=== PATIENT | female | born 1950 | race Caucasian/White ===

== ENCOUNTER → 2017-11-22 | Outpatient (CLI) | payer OTHER, BC, MEDICAID | LOC: FIMAGING 10:43 | DX: N18.1 Chronic kidney disease, stage 1 (principal) ==

== ENCOUNTER → 2017-12-16 | Outpatient (CLI) | payer OTHER, BC, MEDICAID | LOC: FIMAGING 13:17 | DX: Z13.820 Encounter for screening for osteoporosis (principal); M85.89 Other specified disorders of bone density and structure, multiple sites ==

== ENCOUNTER → 2018-02-15 | Outpatient (CLI) | payer OTHER, BC, MEDICAID ==
[~2018-02-15] MED LIST: IOPAMIDOL (ISOVUE-300) 100 ML BTL ONE
== END ==
LOC: FIMAGING 10:42
PROVIDERS: ATTEND Family Medicine
DX: N20.0 Calculus of kidney (principal); I70.0 Atherosclerosis of aorta; K57.30 Diverticulosis of large intestine without perforation or abscess without bleeding; M51.36 Other intervertebral disc degeneration, lumbar region; Z90.49 Acquired absence of other specified parts of digestive tract
CPT/HCPCS: 74177; Q9967

== ENCOUNTER → 2018-06-07 | Outpatient (CLI) | payer OTHER, MEDICAID ==
--- NOTE | 2018-06-07 16:06 | ECHO ---
[email or web address] [address] [address] Main: [phone] Fax: [email or web address] Echocardiogram Name: PIEDAD DELGADO MR#: [id number] Study Date: 06/07/2018 Study Time: 02:02 PM Date of : 1950 Age: 68 year(s) Height: 160 cm (63 in.) Weight: 85.73 kg (189 lb.) BSA: 1.89 m2 Gender: Female Examination: Echo Indication: Coronary artery disease, Shortness of breath Image Quality: Contrast: Requested by: On staff Doctor not BP: 122 mmHg/77 mmHg Heart Rate: Rhythm: Normal sinus rhythm Indication: Coronary artery disease, Shortness of breath Procedure Staff Clay Temperer: Corbin Hope RDCS Reading Physician: Kael Burt MD Requesting Provider: Conclusions: Normal size left ventricle. No LV hypertrophy. Normal global systolic LV function. EF is 72 %. Diastolic dysfunction is present. . Normal size right ventricle. Normal RV function. The left atrium is normal in size. The right atrium is normal in size. The mitral valve is normal in appearance and function. Trivial mitral valve regurgitation. The aortic valve is normal in appearance and function. The tricuspid valve appears normal. Mild tricuspid regurgitation is present. The pulmonary artery pressure is mild to moderately increased. The pulmonic valve is normal in appearance and function. The aorta is normal. No pericardial effusion. The most likely cause of shortness of breath in this patient is elevated resting pulmonary pressure. Measurements: Chambers Valvular Assessment AV/MV Valvular Assessment TV/PV Normal Normal Normal Name Value Range Name Value Range Name Value Range Ao Cinda (MM): 2.6 cm (2.2 cm-3.7 MV E Vmax: 0.85 m/s ( - ) TR Vmax: 3.27 mm/s ( - ) cm) MV A Vmax: 1.00 m/s ( - ) TR PGmax: 43 mmHg ( - ) IVSd (2D): 0.8 cm (0.6 cm-1.1 MV E/A: 0.85 ( - ) syst. PAP: 48 mmHg ( - ) cm) PV Vmax: 0.75 m/s (0.6 m/s-0.9 LVDd (2D): 4.6 cm (3.9 cm-5.3 m/s) cm) Patient: PIEDAD DELGADO Study Date: 06/07/2018 Page 1 of 2 02:02 PM LVDs (2D): 2.7 cm (2.1 cm-4 PV PGmax: 2 mmHg ( - ) cm) LVPWd (2D): 0.9 cm ( - ) LVEF (2D): 72 (>=54 %) Continued Measurements: Chambers Valvular Assessment AV/MV Valvular Assessment TV/PV Name Value Name Value Name Value LADs Lon.7 cm MV E' Septal: 0.07 m/s CVP (est.): 5 mmHg LA Area: 17.2 cm2 MV E/E' Septal: 12.30 LA Volume: 46 ml MV E/E' Lateral: 8.00 LA Volume Index: 24.3 ml/m2 Findings: Left Ventricle: Normal size left ventricle. No LV hypertrophy. Normal global systolic LV function. EF is 72 %. Diastolic dysfunction is present. . Right Ventricle: Normal size right ventricle. Normal RV function. Left Atrium: The left atrium is normal in size. Right Atrium: The right atrium is normal in size. Mitral Valve: The mitral valve is normal in appearance and function. Trivial mitral valve regurgitation. Aortic Valve: The aortic valve is normal in appearance and function. Tricuspid Valve: The tricuspid valve appears normal. Mild tricuspid regurgitation is present. The pulmonary artery pressure is mild to moderately increased. Pulmonic Valve: The pulmonic valve is normal in appearance and function. Aorta: The aorta is normal. Pericardium: No pericardial effusion. (No Signature Object) Patient: PIEDAD DELGADO Study Date: 06/07/2018 Page 2 of 2 02:02 PM [id number]
== END ==
LOC: FCP 13:37
PROVIDERS: ATTEND Internal Medicine Geriatric Medicine
DX: R06.02 Shortness of breath (principal); I25.10 Atherosclerotic heart disease of native coronary artery without angina pectoris

== ENCOUNTER → 2018-07-16 | Outpatient (CLI) | payer OTHER, MEDICAID | LOC: FIMAGING 11:31 | PROVIDERS: ATTEND Nurse Practitioner Family | DX: M25.579 Pain in unspecified ankle and joints of unspecified foot (principal) ==

== ENCOUNTER → 2018-07-19 | Outpatient (CLI) | payer OTHER, MEDICAID | LOC: FIMAGING 15:43 | PROVIDERS: ATTEND Internal Medicine Geriatric Medicine | DX: M71.22 Synovial cyst of popliteal space [Baker], left knee (principal); M71.21 Synovial cyst of popliteal space [Baker], right knee ==

== ENCOUNTER 2018-07-21 08:19 | Emergency (ER) | payer MEDICAID, OTHER ==
--- NOTE | 2018-07-21 09:08 | EDPHY ---
H & P Time Seen by Provider: 07/21/18 09:01 HPI/ROS: Chief complaint. Shortness of breath, right leg pain HPI. 68-year-old female presents emergency department with complaints of shortness of breath and painful right great toe. Shortness of breath is worse at night and better with sitting up. She really does not noticed the shortness of breath during the day. She does have occasional chest pain but has not had chest pain for the last several days. She has a chronic cough that is not different. She has no fever. Patient was seen in our emergency department May 26 for leg swelling and shortness of breath. She had a CT a which showed coronary artery disease but unlikely to have pulmonary embolus. She had an echocardiogram on June 07 which showed increased pulmonary artery pressure and the conclusion was most likely cause of shortness of breath is increased resting pulmonary pressure. Patient had an ultrasound of both legs July 19 which showed popliteal cyst but no evidence for DVT. The right great toe is red and painful at the base of the toe. She denies trauma. No abdominal pain vomiting or diarrhea ROS 10 systems were reviewed and negative with the exception of the elements mentioned in the history of present illness Past Medical/Surgical History: Past medical history is significant for coronary artery disease, kidney disease , hypothyroid Social History: Life partner, nonsmoker, no alcohol Smoking Status: Never smoked Physical Exam: General Appearance: Alert well-developed female mild distress vital signs are stable Eyes: Pupils equal and round no pallor or injection. ENT, Mouth: Mucous membranes are moist. Respiratory: There are no retractions, lungs are clear to auscultation. Cardiovascular: Regular rate and rhythm. Gastrointestinal: Abdomen is soft and nontender, no masses, bowel sounds normal. Neurological: Awake and alert, sensory and motor exams grossly normal. Skin: Warm and dry, no rashes. Musculoskeletal: Neck is supple nontender. Extremities symmetrical, full range of motion. Right great toe is erythematous and tender with mild swelling. Tender especially at the MTP joint but is erythematous to the tip of the toe. No lymphangitis Psychiatric: Patient is oriented X 3, there is no agitation. Constitutional: Initial Vital Signs Temperature (C) 36.8 C 07/21/18 08:24 Heart Rate 67 07/21/18 08:24 Respiratory Rate 17 07/21/18 08:24 Blood Pressure 97/65 L 07/21/18 08:24 O2 Sat (%) 94 07/21/18 08:24 O2 Delivery Mode Room Air Allergies/Adverse Reactions: erythromycin base Allergy (Verified 07/21/18 08:22) Home Medications: Medication Instructions Recorded Ambien 05/26/18 Amlodipine Besylate 05/26/18 Atenolol 05/26/18 Celecoxib 05/26/18 Levoxyl 05/26/18 Liothyronine Sodium 05/26/18 Albuterol Hfa Anes Only [Proair 2 puffs IH QID PRN #1 mdi 07/21/18 Hfa Icu (*)] Cephalexin [Keflex (*)] 500 mg PO TID #15 cap 07/21/18 Famotidine 07/21/18 Gabapentin 07/21/18 ZOLPIDEM TARTRATE 07/21/18 predniSONE 40 mg PO DAILY #8 tablet 07/21/18 traZODone 07/21/18 Medical Decision Making - Diagnostics EKG Interpretation: EKG interpreted by me shows normal sinus rhythm normal interval and axis. QRS is normal other than low voltage. There is no obvious ST elevation or depression. There is no arrhythmia. The rate is 64 Imaging Results: Imaging Impressions Chest X-Ray 07/21/18 09:19 Impression: 1. Mild bronchitis/airways disease. 2. No definite pneumonia. Chest x-ray interpreted by me shows mild bronchitis. No evidence of pneumonia. Procedures: IV normal saline, monitor ED Course/Re-evaluation: Re-evaluation 10:00 a.m.. Patient is stable. Patient and I discussed EKG, imaging, laboratory evaluation. We discussed treatment plan including criteria for return importance of follow-up further evaluation. She expresses understanding and agreement Differential Diagnosis: I considered acute coronary syndrome, congestive heart failure, pneumonia. Patient has recently had bilateral leg ultrasound that was negative for DVT. CT angiogram about 1 month ago which also did not show evidence of pulmonary embolus. I think PE unlikely in the face of this workup. Wells criteria is negative to suggest DVT or PE Think the patient may have gout verses cellulitis of her great toe. - Data Points Laboratory Results: Laboratory Results 07/21/18 08:50 07/21/18 08:50 07/21/18 07/21/18 07/21/18 09:02 08:50 08:50 WBC 6.33 10^3/uL 10^3/uL (3.80-9.50) RBC 4.84 10^6/uL 10^6/uL (4.18-5.33) Hgb 14.4 g/dL g/dL (12.6-16.3) Hct 43.6 % % (38.0-47.0) MCV 90.1 fL fL (81.5-99.8) MCH 29.8 pg pg (27.9-34.1) MCHC 33.0 g/dL g/dL (32.4-36.7) RDW 14.1 % % (11.5-15.2) Plt Count 209 10^3/uL 10^3/uL (150-400) MPV 10.5 fL fL (8.7-11.7) Neut % (Auto) 55.1 % % (39.3-74.2) Lymph % (Auto) 27.3 % % (15.0-45.0) [place] % (Auto) 9.8 % % (4.5-13.0) Eos % (Auto) 6.3 % % (0.6-7.6) Baso % (Auto) 1.3 % % (0.3-1.7) Nucleat RBC Rel Count 0.0 % % (0.0-0.2) Absolute Neuts (auto) 3.49 10^3/uL 10^3/uL (1.70-6.50) Absolute Lymphs (auto) 1.73 10^3/uL 10^3/uL (1.00-3.00) Absolute Monos (auto) 0.62 10^3/uL 10^3/uL (0.30-0.80) Absolute Eos (auto) 0.40 10^3/uL 10^3/uL (0.03-0.40) Absolute Basos (auto) 0.08 10^3/uL 10^3/uL (0.02-0.10) Absolute Nucleated RBC 0.00 10^3/uL 10^3/uL (0-0.01) Immature Gran % 0.2 % % (0.0-1.1) Immature Gran # 0.01 10^3/uL 10^3/uL (0.00-0.10) Sodium 144 mEq/L mEq/L (135-145) Potassium 4.3 mEq/L mEq/L (3.3-5.0) Chloride 110 mEq/L mEq/L (97-110) Carbon Dioxide 25 mEq/l mEq/l (22-31) Anion Gap 9 mEq/L mEq/L (8-16) BUN 17 mg/dL mg/dL (7-23) Creatinine 1.0 mg/dL mg/dL (0.6-1.0) Estimated GFR 55 Glucose 103 mg/dL H mg/dL (70-100) Calcium 9.5 mg/dL mg/dL (8.5-10.4) POC Troponin I 0.02 ng/mL ng/mL (0.00-0.08) NT-Pro-B Natriuret Pep 446 pg/mL H pg/mL (0-125) Point of Care Test Results: Chemistry 07/21/18 09:02 POC Troponin I 0.02 ng/mL ng/mL (0.00-0.08) Departure - Departure Disposition: Home, Routine, Self-Care Clinical Impression: Bronchitis Cellulitis Qualifiers: Site of cellulitis: extremity Site of cellulitis of extremity: toe Laterality: right Qualified Code(s): L03.031 - Cellulitis of right toe Condition: Good Instructions: Cellulitis (ED), Gout (ED) Additional Instructions: To help with your breathing use the inhaler using 2 puffs every 6 hr. For red painful toe use of prednisone daily for the next 4 days. Also cephalexin 1 pill 3 times a day for the next 5 days. Return for worsening symptoms. Recheck with your regular physician in the next 2-3 days for re-evaluation Referrals: Bettie Dwyer MD [Primary Care Provider] - 2-3 days, call for appt. Prescriptions: Albuterol Hfa Anes Only [Proair Hfa Icu (*)] 2 puffs IH QID PRN #1 mdi PRN Reason: Short Of Breath/Dyspnea Cephalexin [Keflex (*)] 500 mg PO TID #15 cap predniSONE 40 mg PO DAILY #8 tablet
[2018-07-21 09:29] LABS: PLATELET COUNT 209 10^3/uL (150-400)
[2018-07-21 10:28] VITALS: BP 114/78
--- NOTE | 2018-07-21 11:13 | CPEKG ---
Test Reason : OPEN Blood Pressure : / mmHG Vent. Rate : 064 BPM Atrial Rate : 064 BPM P-R Int : 122 ms QRS Dur : 083 ms QT Int : 404 ms P-R-T Axes : 067 021 007 degrees QTc Int : 417 ms Sinus rhythm Low voltage, extremity leads Confirmed by Shelton Angulo ([id number]) on 07/21/2018 11:12:30 AM Referred By: Confirmed By:Shelton Angulo
== END 2018-07-21 10:27 | disposition home or self-care (01) ==
DX: J40 Bronchitis, not specified as acute or chronic (principal); L03.031 Cellulitis of right toe
CPT/HCPCS: 84484-PO

== ENCOUNTER → 2018-08-22 | Outpatient (CLI) | payer OTHER | LOC: FIMAGING 12:44 | PROVIDERS: ATTEND Internal Medicine Geriatric Medicine | DX: Z12.31 Encounter for screening mammogram for malignant neoplasm of breast (principal); Z80.3 Family history of malignant neoplasm of breast ==

== ENCOUNTER → 2018-10-25 | Outpatient (CLI) | payer OTHER | LOC: FIMAGING 10:20 | PROVIDERS: ATTEND Nurse Practitioner Family | DX: Z13.820 Encounter for screening for osteoporosis (principal); M85.89 Other specified disorders of bone density and structure, multiple sites; Z78.0 Asymptomatic menopausal state; Z87.81 Personal history of (healed) traumatic fracture; R10.32 Left lower quadrant pain; Z87.442 Personal history of urinary calculi ==

== ENCOUNTER 2018-12-01 09:32 | Emergency (ER) | payer OTHER ==
[2018-12-01 09:39] VITALS: BP 104/64
--- NOTE | 2018-12-01 09:55 | EDPHY ---
H & P Stated Complaint: Right hip pain radiating to right thigh for 2 months, " getting worse" Time Seen by Provider: 12/01/18 09:35 HPI/ROS: Chief Complaint: Back and leg pain HPI: 68-year-old obese woman presenting with 2 months of worsening pain in her right buttocks radiating down her right leg. [facility] and started on Celebrex but has since discontinued given her chronic heart conditions. She has not had any imaging. Does have a history of degenerative disc disease and had lumbar surgery in the past. Has a multiyear history of urinary urgency and frequency but this is unchanged. No new difficulty having bowel movements, loss of urine or urine retention. No numbness or weakness. She is ambulating with some discomfort. Pain is worse at night when she is lying in bed. She was unable to get any sleep last night despite taking Tylenol and aspirin. No leg swelling. No redness. No fevers or chills. No cough. ROS: 10 systems were reviewed and were negative except those elements noted in the HPI. Social History: No smoking, no alcohol, no recreational drug use Family History: non-contributory Physical Exam: Gen: Awake, Alert, No Distress HEENT: Nose: no rhinorrhea Eyes: PERRLA, EOMI Mouth: Moist mucosa Neck: Supple, no JVD Chest: nontender, lungs clear to auscultation Heart: S1, S2 normal, no murmur Abd: Soft, non-tender, no guarding Back: no CVA tenderness, no midline tenderness Ext: no edema, non-tender Skin: no rash Neuro: CN II-XII intact, Sensation grossly intact, Strength 5/5 in bilateral upper and lower extremities, 1+ patellar reflexes symmetrical bilaterally. Normal dorsal and plantar flexion strength. Normal gait. Toes are downgoing. - Personal History Current Tetanus Diphtheria and Acellular Pertussis (TDAP): Yes - Medical/Surgical History Hx Asthma: No Hx Chronic Respiratory Disease: No Hx Diabetes: No Hx Cardiac Disease: No Hx Renal Disease: Yes Hx Cirrhosis: No Hx Alcoholism: No Hx HIV/AIDS: No Hx Splenectomy or Spleen Trauma: No Other PMH: kidney disease. hypothyroid. htn. - Social History Smoking Status: Never smoked Constitutional: Initial Vital Signs Temperature (C) 36.3 C 12/01/18 09:33 Heart Rate 62 12/01/18 09:33 Respiratory Rate 16 12/01/18 09:33 Blood Pressure 104/64 12/01/18 09:33 O2 Sat (%) 96 12/01/18 09:33 O2 Delivery Mode Room Air Allergies/Adverse Reactions: erythromycin base Allergy (Verified 07/21/18 08:22) Home Medications: Medication Instructions Recorded Ambien 05/26/18 Amlodipine Besylate 05/26/18 Atenolol 05/26/18 Levoxyl 05/26/18 Liothyronine Sodium 05/26/18 Albuterol Hfa Anes Only [Proair 2 puffs IH QID PRN #1 mdi 07/21/18 Hfa Icu (*)] Cephalexin [Keflex (*)] 500 mg PO TID #15 cap 07/21/18 Famotidine 07/21/18 ZOLPIDEM TARTRATE 07/21/18 traZODone 07/21/18 Cephalexin [Keflex (*)] 500 mg PO Q6H #20 cap 12/01/18 Hydrocodone/Acetaminophen 1 - 2 each PO Q4-6PRN PRN #10 12/01/18 [Hydrocodon-Acetaminophen 5-325] tablet Medical Decision Making ED Course/Re-evaluation: 5-year-old with 2 months of worsening leg pain in a sciatic nerve distribution consistent with sciatica. She does have a history of degenerative disc disease. She has not have any new neurologic symptoms. No red flags for acute cauda equina or neurosurgical emergency. She is ambulating without difficulty. Will check urinalysis to make sure that there is not a underlying mass urinary tract infection. Will refer to spine surgeon as outpatient, I suspect she will need an MRI. No indications for emergent MRI at this time. Will send her home with some [place] for pain control until she can follow up with neurosurgery. Urinalysis is consistent with UTI. Will start her on Keflex, follow up with primary care physician. Departure - Departure Disposition: Home, Routine, Self-Care Clinical Impression: Sciatica, Urinary tract infection Condition: Good Instructions: Urinary Tract Infection in Women (ED), Sciatica (ED) Additional Instructions: You may take hydrocodone with acetaminophen as needed for pain. Follow-up with spinal surgeon in 3-4 days for further evaluation. Return emergency department for uncontrolled pain, new weakness, numbness, inability to walk, or any other concerns. Referrals: Bettie Dwyer MD [Primary Care Provider] - As per Instructions Chuck Augustine MD [Medical Doctor] - As per Instructions Prescriptions: Cephalexin [Keflex (*)] 500 mg PO Q6H #20 cap Hydrocodone/Acetaminophen [Hydrocodon-Acetaminophen 5-325] 1 - 2 each PO Q4- 6PRN PRN #10 tablet PRN Reason: Pain, Severe
== END 2018-12-01 10:35 | disposition home or self-care (01) ==
DX: M54.41 Lumbago with sciatica, right side (principal); N39.0 Urinary tract infection, site not specified

== ENCOUNTER → 2018-12-05 | Outpatient (CLI) | payer OTHER | LOC: FCPNEURO 21:00 | PROVIDERS: ATTEND Student in an Organized Health Care Education/Training Program | DX: G47.33 Obstructive sleep apnea (adult) (pediatric) (principal) ==

== ENCOUNTER 2018-12-13 06:36 | Emergency (ER) | payer OTHER ==
--- NOTE | 2018-12-13 07:07 | EDPHY ---
HPI/HX/ROS/PE/MDM Narrative: CHIEF COMPLAINT: Fall, left knee pain HPI: The patient is a 68 y/o female arriving with a history of chronic kidney disease her friend complaining of left knee pain and left lower back pain secondary to a mechanical fall last night. She was getting out of her car she slipped on the ice and fell onto her left side and was partially wedged under the vehicle. She did not strike her head nor lose consciousness and was able to stand and walk after the fall. She has continued to have pain along the medial aspect of her left knee, mild left ankle pain, and vague left lower back pain. No weakness, paresthesias, chest pain, abdominal pain, or other injuries. She has used Tylenol for pain with some alleviation. No history of diabetes. REVIEW OF SYSTEMS: A comprehensive 10 system review of systems is otherwise negative aside from elements mentioned in the history of present illness. PMH: Chronic kidney disease, L3-L5 surgery SOCIAL HISTORY: Friend at bedside. Lives in [place]. Retired. PCP: Kinjal Worthington. PHYSICAL EXAM: General:Patient is alert, in no acute distress. ENT:Eyes are normal to inspection. ENT inspection normal. Neck: Normal inspection. Full range of motion. Respiratory:No respiratory distress. Breath sounds normal bilaterally. Cardiovascular: Regular rate and rhythm. Strong peripheral pulses. Normal cap refill. Abdomen:The abdomen is nontender to palpation. There are no peritoneal signs. Back: Normal to inspection. Mild tenderness left upper sacrum. No midline tenderness to palpation. Skin: Normal color. No rash. Warm and dry. Extremities: Normal appearance. Tenderness left medial compartment of left knee. Mild lateral tenderness to left ankle, no ecchymosis or swelling. Full range of motion. Neuro: Oriented x3. Normal motor function. Normal sensory function. ED Course: This is a 68 y/o female with a history of chronic kidney disease who presents with left knee, left ankle, and left lower back pain secondary to a mechanical slip and fall on ice yesterday evening. She has medial compartment tenderness along her left knee, mild left lateral ankle tenderness, and mild left sacral tenderness. No ecchymosis, swelling, or visible trauma. She is neurovascularly intact. Plan for x-ray imaging of left knee, left ankle, left hip, pelvis, and lumbar spine. She declines pain medication at this time. My initial impression of x-rays shows no acute fractures, radiologist interpretation is pending. 0850: Patient does not want to wait for radiologist's read of her x-rays and would like to leave now. She will be discharged with standard contusion care and follow up instructions. Return precautions discussed. - Data Points Imaging Results: Imaging Impressions Ankle X-Ray 12/13/18 07:08 Impression: No acute abnormality seen left ankle. Hip X-Ray 12/13/18 07:08 Impression: 1. No acute osseous abnormality seen about the pelvis with attention left hip. 2. Calcific fragment projected superior left hip joint laterally that on prior CT imaging appears to represent anterior superior intra-articular calcific fragment. Knee X-Ray 12/13/18 07:08 Impression: 1. No acute osseous abnormality seen left knee. 2. Moderate joint space narrowing with small marginal osteophytes medial knee joint and patellofemoral joint Lumbar Spine X-Ray 12/13/18 07:08 Impression: 1. No acute abnormality seen about the lumbar spine. 2. Mild to moderate levoscoliosis upper lumbar spine with associated disk space narrowing on the right side of L1 to and left side of L4-L5. 3. Disk replacement cage-type material at L3-L4 in stable position. Imaging: I viewed and interpreted images myself General Time Seen by Provider: 12/13/18 06:52 Initial Vital Signs: Initial Vital Signs Temperature (C) 36.4 C 12/13/18 06:44 Heart Rate 62 12/13/18 06:44 Respiratory Rate 16 12/13/18 06:44 Blood Pressure 95/61 L 12/13/18 06:44 O2 Sat (%) 93 12/13/18 06:44 O2 Delivery Mode Room Air Allergies/Adverse Reactions: erythromycin base Allergy (Verified 12/13/18 06:47) Home Medications: Medication Instructions Recorded Ambien 05/26/18 Amlodipine Besylate 05/26/18 Atenolol 05/26/18 Levoxyl 05/26/18 Liothyronine Sodium 05/26/18 Albuterol Hfa Anes Only [Proair 2 puffs IH QID PRN #1 mdi 07/21/18 Hfa Icu (*)] Famotidine 07/21/18 ZOLPIDEM TARTRATE 07/21/18 traZODone 07/21/18 HCTZ (*) 12/13/18 Departure - Departure Disposition: Home, Routine, Self-Care Clinical Impression: Contusion Qualifiers: Encounter type: initial encounter Contusion area: knee Laterality: left Qualified Code(s): S80.02XA - Contusion of left knee, initial encounter Condition: Good Instructions: Contusion in Adults (ED) Additional Instructions: 1. Use Tylenol as directed on the packaging as needed for pain over the next few days. 2. Apply ice packs to sore areas intermittently if helpful for pain. 3. Follow up with your primary care provider for unimproved symptoms over the next few days. 4. Return to the ED for worsening of condition. Referrals: Kinjal Worthington MD [Primary Care Provider] - As per Instructions Report Scribed for: Alex Saldana Report Scribed by: Cyn Gonzalez Date of Report: 12/13/18 Time of Report: 07:07 Physician Review and Approval Statement: Portions of this note were transcribed by an ED scribe. I personally performed the history, physical exam, and medical decision making; and confirm the accuracy of the information in the transcribed note.
[2018-12-13 09:17] VITALS: BP 98/77
== END 2018-12-13 09:18 | disposition home or self-care (01) ==
DX: S80.02XA Contusion of left knee, initial encounter (principal); M25.572 Pain in left ankle and joints of left foot; W00.0XXA Fall on same level due to ice and snow, initial encounter